=== PATIENT | female | born 1995 | race Two or more races ===

== ENCOUNTER 2016-12-21 19:22 | Emergency (ER) | payer MEDICAID, OTHER ==
[2016-12-21 19:53] VITALS: BP 187/88; PULSE 93; RESP 14; TEMP 98.1; O2SAT 97
[2016-12-21] MEDS ORDERED: IBUPROFEN 600 MG TAB PO ONE (20:37)
[2016-12-21] MEDS ORDERED: AMOXICILLIN 250 MG PREPACK#4 BTL TAKEHOME ONE (20:47)
--- NOTE | 2016-12-21 20:50 | UCPHY ---
H & P Time Seen by Provider: 12/21/16 20:41 Patient Type: Established HPI/ROS: This patient has a right ear pain 9/10 in intensity that started today after a few days of antecedent URI symptoms consisting of nasal congestion and a mild sore throat. She reports muffled hearing in the right ear associated with this and occasional pop sound in the right ear. Her symptoms worsened the evening of presentation and prompted her visit. She notes no exacerbating or alleviating factors. ROS: No high fevers or chills. No other constitutional complaints. HEENT as per HPI otherwise negative. Pulmonary: No cough. 5 point ROS is otherwise negative. Past Medical/Surgical History: Otherwise healthy Smoking Status: Never smoked Physical Exam: Physical Exam Vital signs are normal. General: No acute distress HEENT: Nose: Clear discharge. No sinus tenderness to percussion. Ears: Right external canals clear right TM is dull and erythematous with purulent effusion. Left external canal and TM are clear Eyes: Pupils equal and react to light. Extraocular motions are intact. Neck: Supple Lungs: Clear to auscultation bilaterally. No respiratory distress. Skin: No rash or pallor. Neuro: Alert with no sensorimotor deficits. Constitutional: Initial Vital Signs Temperature (C) 36.7 C 12/21/16 19:47 Heart Rate 93 12/21/16 19:47 Respiratory Rate 14 12/21/16 19:47 Blood Pressure 187/88 H 12/21/16 19:47 O2 Sat (%) 97 12/21/16 19:47 O2 Delivery Mode Room Air Allergies/Adverse Reactions: No Known Allergies Allergy (Verified 12/21/16 19:47) Home Medications: Medication Instructions Recorded Amoxicillin Trihydrate 500 mg PO TID #30 cap 12/21/16 [Amoxicillin] Fluticasone Nasal [Flonase Nasal 2 sprays NASAL DAILY #1 mdi 12/21/16 [place] (RX)] Medical Decision Making - Data Points Medications Given: Discontinued Medications Amoxicillin (Amoxil Chewable 250 Mg Prepack#4) 1 btl TAKEHOME EDNOW ONE PRN Reason: Protocol Stop: 12/21/16 20:48 Last Admin: 12/21/16 21:14 Dose: 1 btl Ibuprofen (Motrin) 600 mg PO EDNOW ONE Stop: 12/21/16 20:38 Last Admin: 12/21/16 20:44 Dose: 600 mg Departure - Departure Disposition: Home, Routine, Self-Care Clinical Impression: Otitis media Qualifiers: Otitis media type: unspecified nonsuppurative Laterality: right Qualifier Code : (H65.91) Unspecified nonsuppurative otitis media, right ear Condition: Good Instructions: Amoxicillin (By mouth), Otitis Media (ED) Additional Instructions: Diagnosis: Right otitis media Plan: Humidifier Flonase steroid nasal spray Amoxicillin antibiotic Ibuprofen for discomfort as needed Return for any significant worsening despite the treatment plan. Referrals: Jazmine Infante MD [Primary Care Provider] - As per Instructions Prescriptions: Amoxicillin Trihydrate [Amoxicillin] 500 mg PO TID #30 cap Fluticasone Nasal [Flonase Nasal [place] (RX)] 2 sprays NASAL DAILY #1 mdi - PQRS PQRS Measurement: NA
== END 2016-12-21 21:15 | disposition home or self-care (01) ==
LOC: CED 19:22
DX: H65.91 Unspecified nonsuppurative otitis media, right ear (principal)
CPT/HCPCS: 99214-PO; G0463-PO

== ENCOUNTER → 2017-09-11 | Outpatient (CLI) | payer OTHER | LOC: CIMAGING 10:20 | PROVIDERS: ATTEND Family Medicine | DX: Z31.9 Encounter for procreative management, unspecified (principal); N92.6 Irregular menstruation, unspecified; N83.8 Other noninflammatory disorders of ovary, fallopian tube and broad ligament | CPT/HCPCS: 76856-PO ==